=== PATIENT | male | born 1970 | race Caucasian/White ===

== ENCOUNTER → 2017-04-11 | Outpatient (CLI) | payer OTHER ==
[~2017-04-11] MED LIST: ASPI325T45 PO; FURO-85 PO; GLC/500 PO; LISI5TAB3 PO; MULT-506 PO; SIMV40TA2 PO
--- NOTE | 2017-04-12 04:52 | PAP/PSG TECHNICIAN REPORT ---
[facility] Information Security Manager Polysomnogram Report Study name: None Report date: 04/12/2017 Study date: 04/11/2017 Referring Physician: Michael Lanier M.D. Name: ANICETO JENKINS Interpreting Physician: Jazmine Lanier M.D. Date of : 1970 Information Security Manager: Mauri Madsen RPSGT. Sex: Male Age: 47 StudyType: PSG Weight: 327 lbs Height: 47 years, Height 5' 7" BMI: 51.21 Medications: LASIX 20 MG, ASPIRIN 81 MG, PRINIVIL 10 MG, LOPRESSOR 25 MG, GLUCOTROL 5 MG, ONETOUCH ULTRA, COMBIVENT RESPIMAT Patient History PATIENT WAS POSITIVE FOR MEHDI IN 2014 WITH AN AHI OF 17.2/HR. HE WAS WEARING CPAP BUT HAD A GASTRIC SLEEVE DONE AND LOST OVER A HUNDRED POUNDS. HE IS HERE TODAY FOR AN EVALUATION FOR MEHDI. RM 5 Parameters Monitored NPSG: E1-M2, E2-M1, Fp1-M2, Fp2-M1, F3-M2, F4-M2, F4-M1, C3-M2, C4-M2, C4-M1, O1-M2, O2-M2, O2-M1, T3-M2, T4-M1, P3-M2, P4-M1, CHIN1, CHIN2, HR, EKG, Legs, PFLOW, SNOR, FLOW, CFLOW, Tidal Volume, THOR, ABDO, SpO2, PLTH, CPRESS, ETCO2 Wave, ETCO2, pH Sleep Architecture Sleep Stages Time at Lights Off 10:16:10 PM STAGES Time (min.) TST (%) Time at Lights On 4:19:10 AM Wake 22.0 -- Total Recording Time (TRT) 363.00 min. N1 8.0 2 Total Sleep Period (TSP) 351.0 min. N2 155.5 46 Total Sleep Time (TST) 341.0min. N3 80.5 24 Awake Time 22.0 min. REM 97.0 28 Wake after Sleep Onset 16.0 min. Sleep Efficiency (SE) 94 % Sleep Onset Latency (REGAN) 6.0 min. Number of Stage 1 Shifts None Awakenings 11 Stage Changes 52 Number of REM periods 4 REM 97.0 28 REM Latency 51.5 min. NREM 244.0 72 Body Position Analysis Supine Right Left Side Prone Vertical Total Sleep Time (min.) 77.2 0.0 273.8 273.79 0.0 0.0 Total Sleep Time (%) 20% 0% 80% 80 0% N/A% Total Sleep Time REM (min.) 17.5 0.0 79.5 None 0.0 0.0 Total Sleep Time NREM (min.) 49.7 0.0 194.3 None 0.0 0.0 Intermittent Wake (min.) 10.0 0.0 12.0 None 0.0 0.0 Total Sleep Period (%) 20% None None None None None Arousals Myoclonus (PLM) * Events Count Index Events Count Index Spontaneous 23 4 Events Awake (PLMW) 21 57.3 Respiratory 4 0.9 Events Asleep w/ Arousal (PLMA) 6 1.1 PLM 6 1 Events Asleep w/o Arousal (PLMS) 45 7.9 Snoring 2 0 Total Asleep 51 9.0 Total 35 6 Total 72 12 Respiratory Analysis * CA OA MA CH H RERA Total Count 0 0 0 0 8 3 8 Index 0.0 0.0 0.0 0 1.4 1 1.9 Mean Duration 0.0 0.0 0.0 0.00 18.4 13.2 17.0 Longest Duration 0.0 0.0 0.0 0.00 0.0 13.9 26.7 Respiratory Event Summary Total Supine ~Supine Right Left Prone REM NREM Apneas Count 0 0 0 N/A 0 N/A 0 0 Index 0.0 0 0 N/A 0.0 N/A 0 0 Hypopneas (4% Desat) Count 8 7 1 N/A 1 N/A 5 3 Index 1.4 6.2 0 N/A 0.2 N/A 3.1 0.7 Apneas & All Hypopneas Count 8 7 1 N/A 1 N/A 5 3 Index 1.4 6 0 N/A 0 N/A 3.1 0.7 Respiratory Events (Historian Dramatic Arts+All Hyp+RERA) Count 8 9 2 N/A 2 N/A 5 3 Index 1.9 8 0 N/A 0.4 N/A 3.7 1.2 Respiratory Related Arousal Count 4 9 1 N/A 1 N/A 1 4 Index 0.9 4 0 N/A 0 N/A 1 1 Snoring Analysis Supine Right Left Prone REM NREM Total Snore duration 1.4 min Snores count 11 N/A 18 N/A 4 25 29 Snore mean duration 2.9 Sec Snores index 10 N/A 4 N/A 2.5 6.1 5.1 TST with snoring (%) 0.4% Desaturation Event Summary: Minimum %SpO2 Event Count Mean/Min/Max Duration(sec.) Desaturation Index % Time In Bed > 90 5 34.1 / 21.0 / 50.8 1.0 90.3 86 - 90 3 32.2 / 17.8 / 57.5 6.2 8.5 81 - 85 2 19.4 / 17.5 / 21.3 33.4 1.0 76 - 80 0 N/A 0.0 0.1 71 - 75 0 N/A 0.0 0.0 66 - 70 0 N/A 0.0 0.0 61 - 65 0 N/A 0.0 0.0 56 - 60 0 N/A 0.0 0.0 51 - 55 0 N/A 0.0 0.0 < 50 0 N/A 0.0 0.0 Total REM NREM Awake <50% 0.0 min. 0.0 min. 0.0 min. 0.0 min. 51 - 60% 0.0 min. 0.0 min. 0.0 min. 0.0 min. 61 - 70% 0.0 min. 0.0 min. 0.0 min. 0.0 min. 71 - 80% 0.4 min. 0.4 min. 0.0 min. 0.0 min. 81 - 90% 32.7 min. 16.6 min. 15.1 min. 1.0 min. 91 - 100% 310.0 min. 78.2 min. 215.9 min. 15.9 min. Average 92 91 92 93 Minimum SpO2 79 79 84 89 Desaturation Event Index 1.5 3.1 0.7 2.7 # Desat. Events below 89% 6 4 2 N/A Time(%) with Saturation below 89% 4.4 3.7 0.7 0.0 Time(min.) with Saturation below 89% 14.9 12.7 2.3 0.0 Time (mins) REM (mins) NREM (mins) % of TST SpO2 Below 90% 7 4 N3 5.6 SpO2 Below 88% 3 0 0 3 Heart Rate Analysis Min (bpm) Max (bpm) Average (bpm) Awake 34 127 72 NREM 49 127 65 REM 53 127 65 Overall 49 127 65 Supplemental O2 Values Minimum O2 level: None Value Start Time End Time Information Security Manager Comments Mr. Jenkins slept in the left and supine positions. No cardiac arrhythmia noted. Leg movements noted. No bruxism noted. Snoring was noted and scored as a 1 on a scale of 1 through 5. (0=no snoring, 5=snoring loud enough to be heard through a closed door or down the mendez way) Mr. Jenkins awoke to use the restroom 0 times during the night. Mr. Jenkins stated I slept as well as I do when I am in my own bed. The final report will be interpreted and signed by a sleep physician. The completed physician report will then be placed in the patient medical record. Therapy (cm H2O) 0 TIB (min.) 363.0 TST (min.) 341.0 Sleep Onset (min.) 6.0 REM Onset From Sleep (min.) 51.5 Sleep Efficiency % 94 Wakefulness (%) 6 Wakefulness (min.) 22.0 NREM 1 (%) 2 NREM 1 (min.) 8.0 NREM 2 (%) 46 NREM 2 (min.) 155.5 NREM 3 (%) 24 NREM 3 (min.) 80.5 REM (%) 28 REM (min.) 97.0 # Arousals 35 Arousal Index 6 # Snore 29 Snore Index 5.1 AHI 1.4 AHI Supine 6 AHI Non-Supine 0 NREM AHI 0.7 REM AHI 3.1 RDI 1.9 # Obstructive Apnea 0 # Central Apnea 0 # Mixed Apnea 0 # Hypopneas 8 RERAs 3 Total Respiratory Events 11 Time Below SpO2 89% (min.) 14.9 Mean NREM SpO2 (%) 92 Mean REM SpO2 (%) 91 Mean Sleep SpO2 (%) 92 Min NREM SpO2 (%) 84 Min REM SpO2 (%) 79 Position Supine (min.) 77.2 Position Non-supine (min.) 273.8 LM Index Sleep 9.0 LM Index NREM 10.6 LM Index REM 4.9 Mean Heart Rate (bpm) 65 Min Heart Rate (bpm) 49
--- NOTE | 2017-05-06 17:48 | Sleep Study ---
Sleep Study Report Date of Service: 04/12/17 Sleep Study Report Interpreting Physician: Roro Lanier MD Sheet Rocker: HECTOR Duff Mr. Jenkins Is a a 47-year-old male sent to the sleep lab to determine if he continues to have sleep apnea after gastric sleeve surgery and 100 lb of weight loss. [place] Sleepiness Scale score on the evening of this study is not recorded but BMI is 51.21. This patient 's total sleep period time was 351 minutes. Total sleep time was 341 minutes. Sleep efficiency was 94%. Latency to sleep onset was 6 minutes with a wake after sleep onset of 16 minutes. Total non-REM sleep time was 244 minutes. He spent 2% of that time in N1 sleep, 46% in N2 sleep. There was 24% and 3 sleep and 28% REM sleep on this test. REM latency was 51.5 minutes. There were 35 cortical arousals from sleep. 23 of these arousals were spontaneous, 4 were due to respiratory events, 6 due to periodically movements of sleep and two were due to snoring. There were 51 PLMS. PLMS index was 9.0 with an arousal index of 1.1 There were no obstructive, central or mixed apneas noted on this test. There were 8 hypopneas. Apnea-hypopnea index was normal at 1.4. There were 29 snoring events noted on this test. Total sleep time with snoring was 0.4%. Mean saturation during sleep was 92% with desaturations to 79%. Saturations were less than 89% for 14.9 minutes of recorded time. These desaturations occurred while the patient was sleeping on his back during REM sleep. There was no cardiac ectopy noted on this test. Heart rates ranged from a low of 49 beats per minute to a high of 127 beats per minute during sleep. Impression and plan: Mr. Jenkins is a 47-year-old male status post gastric sleeve surgery who has lost 100 lb. He no longer has obstructive sleep apnea. He has mild nocturnal hypoxemia when he sleeps on his back and is in REM Sleep. Positional therapy so that he does not sleep on his back will likely resolve this problem. Clinical correlation is needed. Roro Lanier MD
== END | disposition home or self-care (01) ==
LOC: C.NEUR 20:00
PROVIDERS: ATTEND Family Medicine
DX: G47.33 Obstructive sleep apnea (adult) (pediatric) (principal); G47.34 Idiopathic sleep related nonobstructive alveolar hypoventilation

== ENCOUNTER 2024-01-16 08:49 | Observation (INO) ==
--- NOTE | 2024-01-08 08:57 | Anesthesiology Consultation ---
Date of Service January 08, 2024 Assessment & Plan Chart Review Chart Review: Acceptable Risk for Surgery and Patient NOT seen in Pre Admission Testing Consults Requested none History Surgery Operation Date: 01/16/24 12:25 Proposed Procedures p Right Total Knee Arthroplasty - Martin Brandon DO Height/Weight Height: 5 ft 9 in Weight: 139.706 kg Allergies Allergy/AdvReac Type Severity Reaction Status Date / Time No Known Allergies Allergy Unknown Verified 01/07/24 07:41 Medications Home Medications Medication Instructions Recorded Confirmed Last Taken lancets (Biosynthetic TechnologiesTouch UltraSoft #100 ea 06/29/20 01/02/24 Unknown Lancets) lancets 33 gauge (OneTouch Delica #100 ea 06/29/20 01/02/24 Unknown Lancets) lancing device with lancets kit #1 ea 07/21/20 01/02/24 Unknown (OneTouch Delica Lancing Device kit) multivitamin (Multiple Vitamins 1 tab PO QAM 12/29/20 01/07/24 Unknown tablet) ipratropium 20 mcg-albuterol 100 1 puff inhalation Q6H PRN 10/23/22 01/07/24 Unknown mcg/actuation mist for inhalation Shortness Of Breath #12 grams (Combivent Respimat) mometasone-formoterol HFA 200 2 puff inhalation Q12H PRN 10/23/22 01/07/24 Unknown mcg-5 mcg/actuation aerosol Shortness Of Breath #39 grams inhaler (Dulera) blood sugar diagnostic #100 ea 05/06/23 01/02/24 Unknown blood-glucose meter #1 ea 05/06/23 01/02/24 Unknown atorvastatin 20 mg tablet (Lipitor) 20 mg PO QPM #90 tabs 06/17/23 01/07/24 Unknown lisinopril 20 mg tablet 20 mg PO QPM #90 tabs 06/17/23 01/07/24 Unknown omeprazole 20 mg tablet,delayed 20 mg PO QAM 09/30/23 01/07/24 Unknown release metformin 1,000 mg tablet 1,000 mg PO BID #60 tabs 10/07/23 01/07/24 Unknown gabapentin 800 mg tablet 800 mg PO TID #270 tabs 11/27/23 01/07/24 Unknown furosemide 20 mg tablet 20 mg PO QAM #90 tabs 12/08/23 01/07/24 Unknown ibuprofen 200 mg tablet (Advil) 600 mg PO QAM 01/07/24 01/07/24 Unknown semaglutide 1 mg/dose (4 mg/3 mL) 1 mg subcut Q7D 01/07/24 01/07/24 Unknown subcutaneous pen injector (Ozempic) triamcinolone acetonide 0.1 % 1 applic topical BID PRN flaring 01/07/24 01/07/24 Unknown lotion Past Medical History Medical History Hx of sleep apnea "told no longer needs device" Asthma inh x2 prn>"uses quite often" Morbid obesity with BMI of 45.0-49.9, adult GERD (gastroesophageal reflux disease) Diabetes mellitus NIDDM Lung nodules Monitored by [facility] Osteoarthritis HLD (hyperlipidemia) HTN (hypertension) History of testicular cancer 2018- s/p surgery + chemo Intestinal postoperative nonabsorption hx Hearing deficit B/L hearing aids Past Family History Family History Mother , 07/2009 Diabetes Type 2 Myocardial infarction Heart disease Hypertension Sister Lupus Hypothyroid Hypertension Diabetes H/O gastric bypass Cancer Brother Myocardial infarction, Onset Age: 51 Endocrine disorder Cancer Father Hx of CABG Myocardial infarction, Onset Age: 50 Heart disease Grandfather (Maternal) Heart disease Grandfather (Paternal) Heart disease Denies family history of Ovarian cancer Prostate cancer Breast cancer Colorectal cancer Past Surgical History Surgical History Hx of oral surgery History of lymph node excision near his spine>markers present History of vascular access device removed History of esophagogastroduodenoscopy (EGD) History of orchiectomy, unilateral left History of tooth extraction History of arthroscopy of right knee History of gastric bypass lap sleeve gastrectomy History of cardiac cath 2009, "can't remember why he had it done," ghs, no stents>no cardio. Social History Smoking Status: Former smoker tobacco type: cigarettes Do You Dip or Chew Tobacco: Yes (1 can/day; advised) Smoking End Date: many years ago Hx Alcohol Use: Yes Alcohol type: beer alcohol intake frequency: a few times a month Hx Substance Use: Yes substance use type: former substance user and marijuana Last Used Substance Other:: many years ago-occasional use Testing Laboratory Results Laboratory Tests 08/12/22 01/05/24 01/07/24 07:38 09:09 08:31 WBC 9.26 Hgb 13.8 L Hct 42.8 Plt Count 253 PT 10.3 INR APTT 29 Sodium 141 Potassium 4.3 Chloride 106 Carbon Dioxide 29 BUN 21 Creatinine 1.07 Glucose 157 H Hemoglobin A1c 7.3 H TSH 1.032 01/07/24 08:31 WBC Hgb Hct Plt Count PT INR 0.9 APTT Sodium Potassium Chloride Carbon Dioxide BUN Creatinine Glucose Hemoglobin A1c TSH Electrocardiogram Date: 10/03/23 Normal sinus rhythm Normal ECG When compared with ECG of 28-OCT-2013 11:00, No significant change was found Echocardiogram Date: 09/12/14 EF: 60-64
--- NOTE | 2024-01-15 12:37 | History & Physical Report ---
Date of Service January 15, 2024 Assessment & Plan (1) Right knee DJD: We will proceed with right total knee arthroplasty. Postoperatively he will be started on aspirin for DVT prophylaxis and kept overnight in the hospital for postop medical management. He plans to have the hospital set up home health before discharge. History of Present Illness Chief Complaint: Osteoarthritis of the right knee. 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 He does have a history of a gastric bypass surgery. He used to weigh over 450 pounds. He has brought his weight down considerably. He does have a history of right knee arthroscopy done about 10 years ago. His knee is bothering him off and on since then. It has been bothering him much more over the last 6 months. He has been treated by my partner, Dr. Gross. X-rays and MRI were diagnostic for advanced arthritis of the right knee. After failing extensive conservative treatment, he has elected proceed with a right total knee arthroplasty. Allergies Allergy/AdvReac Type Severity Reaction Status Date / Time No Known Allergies Allergy Unknown Verified 01/07/24 07:41 Home Medications Medication Instructions Recorded Confirmed Type lancets ([employer]Touch UltraSoft #100 ea 06/29/20 01/02/24 Rx Lancets) lancets 33 gauge (OneTouch Delica #100 ea 06/29/20 01/02/24 Rx Lancets) lancing device with lancets kit #1 ea 07/21/20 01/02/24 Rx (OneTouch Delica Lancing Device kit) multivitamin (Multiple Vitamins 1 tab PO QAM 12/29/20 01/07/24 History tablet) ipratropium 20 mcg-albuterol 100 1 puff inhalation Q6H PRN 10/23/22 01/07/24 Rx mcg/actuation mist for inhalation Shortness Of Breath #12 grams (Combivent Respimat) mometasone-formoterol HFA 200 2 puff inhalation Q12H PRN 10/23/22 01/07/24 Rx mcg-5 mcg/actuation aerosol Shortness Of Breath #39 grams inhaler (Dulera) blood sugar diagnostic #100 ea 05/06/23 01/02/24 Rx blood-glucose meter #1 ea 05/06/23 01/02/24 Rx atorvastatin 20 mg tablet (Lipitor) 20 mg PO QPM #90 tabs 06/17/23 01/07/24 Rx lisinopril 20 mg tablet 20 mg PO QPM #90 tabs 06/17/23 01/07/24 Rx omeprazole 20 mg tablet,delayed 20 mg PO QAM 09/30/23 01/07/24 History release metformin 1,000 mg tablet 1,000 mg PO BID #60 tabs 10/07/23 01/07/24 Rx gabapentin 800 mg tablet 800 mg PO TID #270 tabs 11/27/23 01/07/24 Rx furosemide 20 mg tablet 20 mg PO QAM #90 tabs 12/08/23 01/07/24 Rx ibuprofen 200 mg tablet (Advil) 600 mg PO QAM 01/07/24 01/07/24 History semaglutide 1 mg/dose (4 mg/3 mL) 1 mg subcut Q7D 01/07/24 01/07/24 History subcutaneous pen injector (Ozempic) triamcinolone acetonide 0.1 % 1 applic topical BID PRN flaring 01/07/24 01/07/24 History lotion Past Med/Surg History Medical History Hx of sleep apnea "told no longer needs device" Asthma inh x2 prn>"uses quite often" Morbid obesity with BMI of 45.0-49.9, adult GERD (gastroesophageal reflux disease) Diabetes mellitus NIDDM Lung nodules Monitored by [facility] Osteoarthritis HLD (hyperlipidemia) HTN (hypertension) History of testicular cancer 2018- s/p surgery + chemo Intestinal postoperative nonabsorption hx Hearing deficit B/L hearing aids Surgical History Hx of oral surgery History of lymph node excision near his spine>markers present History of vascular access device removed History of esophagogastroduodenoscopy (EGD) History of orchiectomy, unilateral left History of tooth extraction History of arthroscopy of right knee History of gastric bypass lap sleeve gastrectomy History of cardiac cath 2009, "can't remember why he had it done," ghs, no stents>no cardio. Family History Mother , 07/2009 Diabetes Type 2 Myocardial infarction Heart disease Hypertension Sister Lupus Hypothyroid Hypertension Diabetes H/O gastric bypass Cancer Brother Myocardial infarction, Onset Age: 51 Endocrine disorder Cancer Father Hx of CABG Myocardial infarction, Onset Age: 50 Heart disease Grandfather (Maternal) Heart disease Grandfather (Paternal) Heart disease Denies family history of Ovarian cancer Prostate cancer Breast cancer Colorectal cancer Social History Smoking Status: Former smoker Tobacco Type: Smokeless Tobacco (Dip or Chew) Smoking End Date: many years ago; Second Hand Exposure: No; Do You Dip or Chew Tobacco: Yes (1 can/day; advised); Tobacco Cessation Education Requested by Patient: No Hx Alcohol Use: Yes Alcohol type: beer Alcohol Intake Frequency: Monthly or Less Hx Substance Use: Yes Last Used Substance Other:: many years ago-occasional use Preferred Language: Bengali Communication Ability: Effective Excelsior Machine Operator Required: No Beliefs That Will Affect Care: None marital status: Single Current Living Situation: Spouse and Family current occupational status: employed current occupation: taxi cab driver How many Children do You have: 2 Other Information That Helps Us Care for You: No Feels Safe at Home: Yes Safety Concerns: Feels Safe At This Time Dental Care, Regularly: No Seatbelt Use: never Sunscreen Use: No Assistive Devices: Glasses and Hearing Aid - Bilateral Assistive Devices Comment: hearing aids will not be worn DOS; glasses prn Review of Systems All systems reviewed & are unremarkable except as noted in HPI & below. Physical Exam On physical examination of the right knee, he has a slight varus deformity. He has tenderness palpation of the distal medial femoral condyle and over the medial joint line.. Constitutional WD/WN, vitals as above Eyes PERRL, conjunctivae normal, anicteric sclerae ENMT external ear and nose normal, oropharynx normal Neck trachea midline, no thyromegaly Respiratory normal respiratory effort Cardiovascular RRR, no murmur, no edema Gastrointestinal (Abdomen) normal bowel sounds, soft, nontender, no hepatosplenomegaly Psychiatric A+Ox3, euthymic affect Results & Data Results & Data Laboratory Results . Diagnostic Findings X-rays of the right knee do show some advanced arthritis with some joint space narrowing and osteophyte formation MRI of the right knee confirms extensive chondral bone loss and fluid within the femoral condyles.. PG Care Time/CCT Total # of Minutes Spent Total Time Spent with Patient: Total time spent is greater than 50% in coordination of care (as documented) at patient's floor/unit and/or counseling patient: Coding Level of Care Code None Diagnoses Right knee DJD M17.11
[~2024-01-16 08:49] MED LIST changes: -ASPI325T45 PO; +BUPIVACAINE 0.5 % 5 MG/1 ML PF 10ML VIAL ONE; -FURO-85 PO; -GLC/500 PO; -LISI5TAB3 PO; -MULT-506 PO; +ROPIVACAINE 0.5% 5 MG/ML 30 ML VIAL ONE; -SIMV40TA2 PO
[2024-01-16] MEDS: LR 500ML BOLUS, THEN 15ML/HR IV SCH (09:40)
[2024-01-16] MEDS: dexAMETHasone**PF** 10 MG/ML VIAL IV SCH (10:01)
[2024-01-16] MEDS: ACETAMINOPHEN 500 MG TAB PO SCH ×2 (10:01→21:33)
[2024-01-16] MEDS: GABAPENTIN 300 MG CAP PO SCH (10:01)
[2024-01-16] MEDS: FAMOTIDINE 20 MG TAB PO SCH (10:01)
[2024-01-16] MEDS ORDERED: ATROPINE SULFATE 0.1 MG/ML 10ML SYR IV PRN (10:15)
[2024-01-16] MEDS ORDERED: ePHEDrine sulfate 50 MG/ML AMP IV PRN (10:15)
[2024-01-16] MEDS ORDERED: ONDANSETRON INJ 2 MG/ML 2 ML VIAL IV PRN ×2 (10:15→14:25)
--- NOTE | 2024-01-16 10:23 | History & Physical Bridge Note ---
Date of Service January 16, 2024 History & Physical Bridge Note I have examined the patient, reviewed the History & Physical and in the interval since the performance of the History & Physical I have noted the following changes of clinical significance: no changes noted
[2024-01-16] MEDS ORDERED: PROPOFOL IV EMULSION 10 MG/ML 20 ML VIAL IV ONE (10:24)
[2024-01-16] MEDS ORDERED: MIDAZOLAM HCL 1 MG/ML 2ML VIAL ONE (10:25)
[2024-01-16] MEDS ORDERED: fentaNYL citrate PF 100 MCG/2 ML VIAL ONE (10:25)
[2024-01-16] MEDS: TRANEXAMIC ACID 1,000 MG **IV Pre-op IV SCH (10:47)
[2024-01-16] MEDS: ceFAZolin 3000MG 3,000 MG/72.5 ML BAG IV SCH (11:10)
[2024-01-16] MEDS: ROPIV 0.5% 246mg, Ketorolac 30mg, EPINEPHrine 0.5mg in NSS INFIL SCH (12:11)
[2024-01-16] MEDS: ORTHO JOINT ANESTHETIC ONE (12:12)
[2024-01-16] MEDS: TRANEXAMIC ACID 1,000 MG **IV Intra-op IV SCH (12:12)
--- NOTE | 2024-01-16 12:18 | Operative Report ---
PG Post Operative Report Pre & Post Diagnosis Operation Date: 01/16/24 11:00 Pre-Op Diagnosis: Right Knee Degenerative Joint Disease Post-Op Diagnosis: Right Knee Degenerative Joint Disease I identified the patient and participated in the time-out.: Yes Procedure Operation Date: 01/16/24 11:00 Actual Procedures p Right Total Knee Arthroplasty(Right) - Martin Brandon DO Surgeon Martin Brandon DO Poultry Buyer Martin Barrientos PA-C Estimated Blood Loss 30 Findings Consistent with Post-Op Diagnosis Specimens Right femoral tibial bone Description of Procedure Implants used: I used a Noreen Persona total knee arthroplasty system with a size 8 standard PS femur, F tibia, 34 oval patella, and a size 10 CPS polyethylene bearing. All components were cemented in place with Biomet cement. Jaziel arrived [facility] for the above procedure. He was seen in the preoperative holding area and the operative extremity was identified and signed. He was given a preoperative antibiotic, TXA, a spinal anesthetic and an adductor nerve block. He was taken back to the operating room and laid on the table in supine position. He was given basic sedation. The operative knee was then prepped and draped in sterile fashion. A timeout was done, and the patient and the operative extremity was properly identified. A midline incision was made directly over the patella. Dissection was taken down to the extensor mechanism. A medial parapatellar arthrotomy was used. The medial retinaculum was released and the fat pad was mostly excised. The knee was flexed and the ACL, PCL, and meniscus were removed. A drill was sent down the center of the femoral canal followed by an intramedullary britton. Off that britton a distal femoral cutting block was placed. 9 mm was resected off the distal femur at 5 of valgus. A posterior referencing AP sizing guide was then placed on the distal femur. The femur measured to be a size 8. 2 drill holes were placed in 3 of external rotation. A 4-in-1 cutting block was then impacted into place. Anterior, posterior, and chamfer cuts were then made. The proximal tibia was then exposed. An external tibial alignment guide was placed. A tibial cut guide was then anchored in place and the proximal tibia was then resected. The posterior aspect of the knee was then opened up and any additional meniscus fragments and osteophytes were removed. The tibia measured to be a size F. The tibial plate was then placed in the appropriate rotation and the tibia was drilled and punched. Trial components were then placed. I used a size 10 CPS polyethylene insert. The knee was brought through a full range of motion and felt to be stable. The peg holes for the femoral component were then drilled. The patella was then everted and 9 mm was resected off the posterior aspect of the patella. The patella measured to be a size 34 oval. 3 peg holes were then drilled. A trial patella was placed. The knee was once again brought through a full range of motion and felt to be stable. Trial components were then removed. The surrounding soft tissues were injected with 100 cc of an orthopedic pain control cocktail. All components were then cemented into place with Biomet cement. The final polyethylene insert was then snapped into place. Once cement was dry the tourniquet was deflated. Hemostasis was obtained. A dilute betadyne lavage was then done for 3 minutes. The joint was then irrigated with normal saline solution. The medial parapatellar arthrotomy was then closed with #1 Vicryl suture. The skin was closed with 2-0 Vicryl, 3-0V lock suture, and rudy. A soft compressive dressing was placed. He was then transferred to a hospital bed and taken to the postanesthesia care unit in stable condition. He tolerated the procedure well. Martin Barrientos PA-C, was present for the entire procedure. He was critical for patient positioning, prepping, draping, retraction exposure, wound closure and application of sterile dressing. I attest to the content of the Intraoperative Record and any orders documented therein. Any exceptions are noted below.
[2024-01-16] MEDS: fentaNYL citrate PF 100 MCG/2 ML VIAL IV PRN (12:56)
--- NOTE | 2024-01-16 13:22 | XRay Report ---
RIGHT KNEE 2 VIEWS History: Right total knee arthroplasty. Degenerative arthritis. Postop. FINDINGS: The patient is status post a right total knee arthroplasty. The hardware is intact. No frac ture or dislocation. Skin rudy are in place. IMPRESSION: Right total knee arthroplasty. No evidence for hardware complication. ACT 112: Negative or not required by law. Electronically signed by: Manolo Franco M.D. 01/16/2024 1:21 PM
--- NOTE | 2024-01-16 13:30 | Anesthesiology Progress Note ---
Date of Service January 16, 2024 Anesthesia Post Procedure Vital Signs Vital Signs: Temp Pulse Pulse Resp BP Pulse Ox O2 Del Method 01/16/24 13:20 60 12 124/86 96 Room Air 01/16/24 13:10 65 14 130/80 97 Room Air 01/16/24 13:00 74 17 110/83 99 Room Air 01/16/24 12:50 65 12 122/75 97 Room Air 01/16/24 12:41 97.0 F L 68 15 109/65 99 Oxymask 01/16/24 10:07 97.9 F 73 20 146/90 H 99 Room Air O2 Flow Rate 01/16/24 13:20 01/16/24 13:10 01/16/24 13:00 01/16/24 12:50 01/16/24 12:41 6 01/16/24 10:07 Pain Intensity Back: Pain Intensity: 3 Transfer of Care Handoff Completed per policy Notes Mental Status: alert / awake / arousable and participated in evaluation Patient Amnestic to Procedure: Yes Nausea / Vomiting: adequately controlled Pain: adequately controlled Airway Patency, RR, SpO2: stable & adequate BP & HR: stable & adequate Hydration State: stable & adequate Neuraxial Anesthesia: was administered and sensory block is resolving Anesthetic Complications: no major complications apparent and Pt Satisfied with anesthetic care
--- OUTSIDE RECORDS SUMMARY | 2024-01-16 13:50 | External Medical Summary | Summary of Care ---
Author Name Unknown Organization [facility] Address [address] [place] [address] Phone [phone] Care Team Providers Care Ob/Gyn Doctor Name Role Phone Eryn Brown PA-C Primary Care Provider [phone] Reason for Visit * Reason Onset Date Comments Advice 01/06/2024 Encounter Details Date Type Department Care Team (Late st Contact Info) Description 01/06/2024 Telephone [facility] [address] [place] [address] Eryn Brown PA-C [address] [place] [address] Advice Allergies Active Allergy Reactions Criticality Noted Date Comments No Known Drug Allergy 11/19/2010 documented as of this encounter (statuses as of 01/07/2024) Medications Medication Sig Dispensed Refills Start Date End Date Status ONETOUCH ULTRA 2 W/DEVICE KIT use once daily 1 Kit 0 12/27/2014 Active ONETOUCH ULTRASOFT LANCETS MISC use daily dx 250.0 1 Box 11 12/27/2014 Active ONETOUCH DELICA LANCING DEV MISC use daily as directed 1 Each 11 12/27/2014 Active Blood Glucose Monitoring Suppl (ONETOUCH ULTRA SYSTEM) W/DEVICE KIT Use as directed 4 times a day as needed (as directed). E11.9 1 Kit 0 12/06/2015 Active Glucose Blood (ONETOUCH ULTRA BLUE) STRP Use as directed 4 times a day as needed (as directed). E11.9 100 Strip 11 12/06/2015 Active ONETOUCH DELICA LANCETS 33G MISC Use as directed 100 Each 6 12/06/2015 Active COMBIVENT RESPIMAT 20-100 MCG/ACT Inhaler 1 inhalation 4 times a day, max 6 times 1 Inhaler 11 04/15/2017 Active Additional Information Patient taking differently: PRN, 1 inhalation 4 times a day, max 6 times, Reported on 11/10/2019 Mometasone Furo-Formoterol Fum (DULERA) 200-5 MCG/ACT Inhaler Inhale 2 Puffs by mouth 2 times a day. 1 Inhaler 11 07/08/2017 Active Additional Information Patient taking differently:2 Puff InhalationPRN, Reported on 11/12/2022 ONETOUCH ULTRA BLUE STRP USE DIRECTED FOUR TIMES DAILY NEEDED. 100 Strip 1 07/23/2017 Active metFORMIN HCl 500 MG Oral Tablet (Glucophage)Indicat ions:Type 2 diabetes mellitus with hemoglobin A1c goal of less than 7.0% (HCC) TAKE ONE TABLET BY MOUTH TWICE A DAY WITH MORNING AND EVENING MEALS 180 Tab 1 02/14/2021 Active Furosemide 20 MG Oral Tablet (Lasix) TAKE 1 TABLET BY MOUTH TWICE A DAY 180 Tablet 3 11/25/2022 Active Metoprolol Tartrate 25 MG Oral Tablet (Lopressor) TAKE ONE TABLET BY MOUTH TWICE A DAY 180 Tablet 3 05/30/2022 Active Atorvastatin Calcium 20 MG Oral Tablet (Lipitor) Take 1 tablet (20 mg) by mouth daily in the evening 90 Tablet 3 06/17/2023 Active Lisinopril 20 MG Oral Tablet (Prinivil) Take 1 tablet (20 mg) by mouth daily in the evening 90 Tablet 3 06/17/2023 Active Gabapentin 800 MG Oral Tablet (Neurontin) Take 1 tablet orally three times a day 270 Tablet 1 11/27/2023 Active Furosemide 20 MG Oral Tablet (Lasix) take 1 tablet (20 mg) by mouth daily in the morning 90 Tablet 1 12/08/2023 Active Triamcinolone Acetonide 0.1 % External Lotion (Aristocort) 2 times a day as needed. 0 05/02/2023 Active Ozempic (1 MG/DOSE) 4 MG/3ML Subcutaneous Solution Pen-injector (Semaglutide (1 MG/DOSE))Indication s:Type 2 diabetes mellitus with hemoglobin A1c goal of less than 7.0% ([facility]) Inject 1 mg under the skin once a week. 3 mL 1 12/16/2023 01/15/2024 Active documented as of this encounter (statuses as of 01/07/2024) Active Problems Problem Noted Date Diagnosed Date Microalbuminuria 12/16/2023 Drug-induced polyneuropathy 12/16/2023 Body mass index (BMI) of 45.0 to 49.9 in adult 0 04/28/2023 Overview: Per Obesity protocol - Per Obesity protocol - - Concern about urinary tract disease without diag nosis 10/11/2022 History of testicular cancer 11/29/2019 Hypomagnesemia 01/25/2019 Malignant neoplasm of descended left testis 11/20 Cancer Staging:Clinical: Unsigned Intestinal postoperative nonabsorption 7 Status post laparoscopic sleeve gastrectomy 03/2017 HTN, goal below 140/90 04/01/2016 Overview: Per HTN Protocol Nocturnal hypoxemia 08/20/2015 Overview: 03/2017: MEHDI resolved, mild residual hypoxemia Moderate persistent asthma without complication 12/16/2014 Dyslipidemia, goal LDL below 100 03/12/2011 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 0 to 49.9 in adult 11/02/2018 12/28/2020 Overview: Per Obesity protocol #1 - Body mass index (BMI) of 50. 0 to 59.9 in adult 10/28/2017 11/06/2018 Overview: Per Obesity protocol #1 - Per Obesity protocol #1 Body mass index (BMI) of 60. 0 to 69.9 in adult 07/21/2017 10/30/2017 Overview: Per Obesity protocol #1 Morbid obesity with BMI of 45.0-49.9, adult 12/23/2016 07/24/2017 Overview: Per Obesity protocol #1 Obesity 07/08/2016 07/24/2017 Overview: Per Obesity protocol #1 Right shoulder pain 07/08/2016 06/20/20 Acute maxillary sinusitis 10/24/2015 Acute bronchitis, complicated 07/17/2015 03/26/2016 Lower urinary tract infectious disease 04/03/2015 03/26/2016 Overview: ICD-10 update of inactive term Moderate obstructive sleep apnea 03/24/2015 04/15/2017 Kidney pain 02/13/2015 03/26/2016 Diarrhea 01/11/2015 03/26/2016 Cough 09/21/2014 10/17/2014 Bronchitis, complicated 09/12/201404/2016 Acute sinusitis 08/01/2014 09/12/2014 Skin tag 04/28/2014 09/12/2014 Inability to attain erection 04/28/2014 04/03/2015 Bronchitis, complicated 01/31/201405/20 Obesity, morbid (more than 1 00 lbs over ideal weight or BMI > 40) 01/07/2014 03/26/2016 Cellulitis of leg 12/27/2013 06/05/2014 Knee pain, right 11/05/2013 03/26/2016 Preop examination 11/05/2013 03/26/2016 Knee pain, bilateral 06/14/2013 014 Cellulitis of leg 05/18/2013 06/14/2013 Edema 05/18/2013 03/26/2016 Bronchitis 10/15/2012 06/14/2013 Malaise and fatigue 09/11/2012 06/14/20 13 Heel pain 09/11/2012 06/14/2013 Acute sinusitis 09/11/2012 06/14/2013 Acute bronchitis, complicated 12/27/2010 05/23/2011 Dyspnea and respiratory abnormality 12/27/2010 05/25/2011 Overview: ICD-10 update of inactive term Adult body mass index 50.0-59.9 11/19/2010 01/07/2014 HTN, goal below 130/80 11/19/201001/21 Other, multiple, and unspeci fied sites, insect bite, nonvenomous, infected(919.5) 09/04/2010 05/23/2011 Enthesopathy of knee 06/10/2010 012 Enthesopathy of knee 06/05/2010 011 [employer] Other*[id number] 03/14/2010 05/23/2011 Overview: Study Titile: Genomic Markers for Patients with Cardiovascular Disease Project #[id number] PI: Reshma Klein MD Please call [phone] with study related questions Other chest pain 03/14/2010 05/23/2011 CHRONIC CORONARY ARTERY DISEASE 03/14/2010 03/08/2011 Overview: Luminal irregularities Unspecified viral infection, in conditions classified elsewhere and of unspecified site 12/12/2009 05/23/2011 Elevated blood pressure, situational 12/11/2009 05/23/2011 Impaired fasting glucose 12/11/200901/2011 Hearing loss 12/11/2009 06/14/2013 Routine medical exam 11/22/2009 017 Malaise and fatigue 11/22/2009 09/11/20 12 Morbid obesity, BMI not known 11/22/2009 10/15/2012 Dyslipidemia, goal to be determined 03/12/2011 Abnormal glucose tolerance test 05/23/2011 HTN, goal below 140/80 04/04 Overview: Per HTN Protocol HTN, goal below 140/80 01/21 documented as of this encounter (statuses as of 01/07/2024) Immunizations Name Administration Dates Next Due COVID-19 mRNA, LNP-s, No Pre serve, 2-Dose Series (Pfizer) 02/01/2021,01/11/2021 COVID-19, LNP-s, No Preserve , Osman-sucrose, Ages 12+ (Pfizer) 11/14/2021 PPD 09/19/2015 Pneumococcal Polysaccharide PPV23 (Pneumovax) Seasonal Influenza, PF, 6 M & above, IM , (FluLaval or Fluzone) 10/07/2018 Seasonal Influenza, Quadrivalent, No Preserve, I M 07/08/2017,09/07/2016 Seasonal Influenza, Split, IIV3, With Preserve, Inj 08/20/2011 TDAP (age 10 and older)(Boostrix) 10/11/2022 TDAP (age 11 and older)(Adacel) 11/22/2009 documented as of this encounter Social History Tobacco Use Types Packs/Day Years Used Date Smoking Tobacco: Former Cigarettes 2 15 0 10/20/1980 - 10/20/1995 Smokeless Tobacco: Current Snuff Alcohol Use Standard Drinks/Week Comments No 0 (1 standard drink = 0.6 oz pur e alcohol) rare social PHQ-2 Answer Date Recorded PHQ-2 Score 0 10/07/2018 Hunger Vital Sign Answer Date Recorded Within the past 12 months, y ou worried that your food would run out before you got the money to buy more. Never true 12/15/19 24 Within the past 12 months, t he food you bought just didn't last and you didn't have money to get more. Never true 12/15/2023 Sex and Gender Information Value Date Recorded Sex Assigned at Male 12/27/2019 12:56 PM EDT Gender Identity Male 12/27/2019 12:56 PM EDT Sexual Orientation Straight 12/27/2019 12 :56 PM EDT Job Start Date Occupation Industry Not on file Not on file Not on file documented as of this encounter Functional Status Functional Status Response Date of Assess ment Are you deaf or do you have serious difficulty h earing? No 02/02/2016 Are you blind or do you have serious difficulty seeing, even when wearing glasses? No 02/02/2016 Do you have serious difficul ty walking or climbing stairs? (5 years old or older) No 02/02/2016 Do you have difficulty dress ing or bathing? (5 years old or older) No 02/02/2016 Because of a physical, menta l, or emotional condition, do you have difficulty doing errands alone such as visiting a doctor s office or shopping? (15 years old or older) No 02/02/20 16 Cognitive Status Response Date of Assessm ent Because of a physical, menta l, or emotional condition, do you have serious difficulty concentrating, remembering, or making decisions? (5 years old or older) No 02/02/2016 documented as of this encounter Miscellaneous Notes * Telephone Encounter - Rakel Hatfield LPN - 01/07/2024 4:35 PM EDT Pt read Weele message today regarding this. Nothing further needed. See other message. * Telephone Encounter - Tobias Barker OSA - 01/06/2024 12:04 PM EDT Pt has called to get in contact with Jaelyn Boyd,mentioned he will like to inform her his results for A1C . Ty documented in this encounter Plan of Treatment Upcoming Encounters Date Type Department Care Team (Late st Contact Info) Description 02/03/2024 8:20 AM EDT [facility] [address] [phone] Yamilka Yang [address] [phone] 02/10/2024 3:00 PM EDT Office Visit Family Practice [facility] [address] [address] Colette Boyd CRNP [address] [address] Health Maintenance Due Date Last Done Comments Hepatitis C Screening 01/03/1986 Hepatitis B (1 of 3 - 19+ 3-dose series) 01/03/1987 Pneumococcal Vaccine: Pediatrics (0 to 5 Years) and At-Risk Patients (6 to 64 Years) (2 of 2 - PCV) 03/08/2012 03/08/2011 Cologuard 01/03/2013 Colonoscopy 01/03/2013 Colorectal Cancer Screening 01/03/2013 Fecal Occult Blood Test 01/03/2013 Sigmoidoscopy 01/03/2013 Zoster Vaccines (1 of 2) 01/03/2018 Depression Screening 05/24/2020 05/24/2019 GFR 02/07/2021 02/08/2020, 09/20, 05/15/2019, Additional history exists COVID-19 Vaccine ( season) 2023 07/12/2022, 11/14/2021, 02/01/2021, Additional history exists Influenza Vaccine (FLU shot) (#1) 2023 07/12/2022, 07/06/2021, 10/07/2018, Additional history exists Diabetic Foot Exam 10/11/2023 10/11/2022, 0 12/22/2019, 11/10/2018, Additional history exists Diabetic Eye Exam 01/14/2024 01/13/2023, , 02/23/2021, Additional history exists HbA1c 05/11/2024 11/11/2023, 09/20, 10/16/2018, Additional history exists Lipid Panel 10/15/2024 10/15/2019, 09/20, 01/11/2017, Additional history exists Albumin/Creatinine Ratio 11/10/2024 024, 01/11/2017, 03/30/2016, Additional history exists DTaP,Tdap,and Td Vaccines (3 - Td or Tdap) 10/11/2032 10/11/2022, 11/22/2009 GARDASIL-HPV IMMUNIZATION SERIES Aged Out No longer eligible based on patient's age to complete this topic MENINGOCOCCAL (MENACTRA/MENVEO) Aged Out No longer eligible based on patient's age to complete this topic documented as of this encounter Medical Devices Not on filedocumented as of this encounter Advance Directives Latest Code Status on File Code Status Date Activated Date Inactivated Comments Full Code 02/02/2016 10:22 AM 02/03/2016 5:31 PM Question Answer Comments Discussion of Advance Direct monique occurred with: Not Discussed Does the patient have a Living Will? No Does the patient have Health Care Power of Fourth Officer? No Code Status History Code Status Date Activated Date Inactivated Comments Full Code 02/02/2016 6:28 AM 02/02/2016 10:22 AM This order reflects the patients wishes and were consensually agreed upon. Care Teams Ob/Gyn Doctor Relationship Specialty Start Date End Date Eryn Brown PA-C [address] [facility] [place] [address] PCP - General Physician Paint Trimmer Pipe Bowls 11/11/23 documented as of this encounter
--- OUTSIDE RECORDS SUMMARY | 2024-01-16 13:50 | External Medical Summary | Summary of Care ---
Author Name Unknown Organization [facility] Address [address] [place] [address] Phone [phone] Care Team Providers Care Medical Field Representative Name Role Phone Eryn Brown PA-C Primary Care Provider [phone] Reason for Visit * Reason Onset Date Comments Health Maintenance 01/13/2024 Encounter Details Date Type Department Care Team (Late st Contact Info) Description 01/13/2024 Telephone [facility] [address] [place] [address] Eryn Brown PA-C [address] [place] [address] Health Maintenance Allergies Active Allergy Reactions Criticality Noted Date Comments No Known Drug Allergy 11/19/2010 documented as of this encounter (statuses as of 01/13/2024) Medications Medication Sig Dispensed Refills Start Date [...] hemoglobin A1c goal of less than 7.0% ([facility]) Inject 1 mg under the skin once a week. 3 mL 1 12/16/2023 01/15/2024 Active documented as of this encounter (statuses as of 01/13/2024) Active Problems Problem Noted Date Diagnosed Date [...] as of this encounter (statuses as of 01/13/2024) Resolved Problems Problem Noted Date Diagnosed Date [...] of knee 06/05/2010 011 [employer] Other*[id number] 03/14/2010 05/23/2011 Overview: Study Titile: Genomic Markers for Patients with Cardiovascular Disease Project #[id number] PI: Reshma Klein MD Please call [phone] with study related questions Other chest pain [...] as of this encounter (statuses as of 01/13/2024) Immunizations Name Administration Dates Next Due COVID-19 [...] encounter Miscellaneous Notes * Telephone Encounter - Maria Krishnan LPN - 01/13/2024 1:44 PM EDT Care Gaps Comprehensive Care Outreach Last Office/Telemedicine Visit: 11/10/2023 (in office), Visit date not found (telemedicine) Next Office Visit: Visit date not found Hemoglobin AIC Results: Lab Results Component Value Date/Time HEMOGLOBIN A1C - [facility] 10.4 (H) 11/11/2023 08:54 AM HEMOGLOBIN A1C - [facility] 7.0 (H) 10/15/2019 09:19 AM HEMOGLOBIN A1C - [facility] 6.1 (H) 10/16/2018 10:11 AM HEMOGLOBIN A1C - [facility] 5.6 01/11/2017 08:32 AM BP Readings from Last 1 Encounters: 12/16/23 140/82 Reviewed Health Maintenance below: Health Maintenance Topic Date Due Hepatitis C Screening Never done Hepatitis B (1 of 3 - 19+ 3-dose series) Never done Pneumococcal Vaccine: Pediatrics (0 to 5 Years) and At-Risk Patients (6 to 64 Years) (2 of 2 - PCV)03/08/2012 Colorectal Cancer Screening Never done Zoster Vaccines (1 of 2) Never done Depression Screening 05/24/2020 GFR 02/07/2021 Influenza Vaccine (FLU shot) (1) 06/20/2023 COVID-19 Vaccine ( - 2022- season) 2023 Diabetic Foot Exam 10/11/2023 Diabetic Eye Exam 01/14/2024 HbA1c 05/11/2024 Pcp is at [facility] Care Gap Outreach Action Taken: Outreach not indicated documented in this encounter Plan of Treatment Upcoming Encounters Date Type Department Care Team (Late st Contact Info) Description 02/03/2024 8:20 AM EDT Laboratory Laboratory, [facility] [address] [phone] Yamilka Yang [facility] [address] [place] [id number] 02/10/2024 3:00 PM EDT Office Visit Family Practice [facility] [address] [address] Colette Boyd CRNP [address] [place] [address] Health Maintenance Due Date Last Done Comments [...] 09/20, 05/15/2019, Additional history exists COVID-19 Vaccine (2022- season) 2023 07/12/2022, 11/14/2021, 02/01/2021, Additional history [...] the patient have Health Care Power of Guardian Family Member? No Code Status History Code Status Date Activated Date Inactivated Comments Full Code 02/02/2016 6:28 AM 02/02/2016 10:22 AM This order reflects the patients wishes and were consensually agreed upon. Care Teams Medical Field Representative Relationship Specialty Start Date End Date Eryn Brown PA-C [address] [facility] [place] [address] PCP - General Physician Sewer System Supervisor 11/11/23 documented as of this encounter
[2024-01-16] MEDS ORDERED: TRIAMCINOLONE ACET 0.1% CR 15 GM TUBE TOP PRN (14:25)
[2024-01-16] MEDS ORDERED: IPRATROPIUM BROMIDE/ALBUTEROL respimat INH INH PRN (14:25)
[2024-01-16] MEDS ORDERED: MAGNESIUM HYDROXIDE SUSP 30 ML UDC PO PRN (14:25)
[2024-01-16] MEDS ORDERED: HYDROmorphone INJ 0.5 MG/0.5 ML SYR IV PRN (14:25)
[2024-01-16] MEDS ORDERED: bisacodyL 10 MG SUPP PR PRN (14:25)
[2024-01-16] MEDS ORDERED: oxyCODONE HCL IR 5 MG TAB (IMMEDIATE RELEASE) PO PRN (14:25)
[2024-01-16] MEDS ORDERED: METOCLOPRAMIDE HCL INJ 5 MG/ML 2 ML VIAL IV PRN (14:25)
[2024-01-16] MEDS ORDERED: NALOXONE HCL 0.4 MG/1 ML VIAL/CARP IV PRN (14:25)
[2024-01-16] MEDS ORDERED: PHARMACY GLYCEMIC MGMT CONSULT PRN (14:25)
[2024-01-16] MEDS: LR 60ML/HR IV SCH (14:27)
[2024-01-16] MEDS ORDERED: FLUTICASONE/VILANTEROL 200/25MCG 14 PUFFS/INHALER INH PRN (14:42)
[2024-01-16] MEDS ORDERED: ALBUTEROL HFA 8 GM INHALER INH PRN (14:43)
[2024-01-16] MEDS ORDERED: IPRATROPIUM BROMIDE HFA INHALER INH PRN (14:43)
[2024-01-16] MEDS: SODIUM CHLORIDE 0.9% 1,000 ML IV SCH (14:48)
--- NOTE | 2024-01-16 14:55 | Pharmacy Report ---
Pharmacy Glycemic Short Note 2 - Date of Service January 16, 2024 - Glycemic Short BSG Results (Last 24 hours): 01/16/24 01/16/24 01/16/24 09:39 12:41 14:47 POC Glucose 117 H 150 H 159 H OUTPATIENT ANTIDIABETIC REGIMEN: * metformin 1000mg PO BID * Ozempic 1mg SC Q7D * HbA1c 7.3% (01/05/24) ASSESSMENT: * Jaziel is a 54 YOM admitted status post right total knee arthroplasty and a history of T2DM. Pharmacy has been consulted for glycemic management while inpatient. * Preoperative BSG within goal range, trended up with dexamethasone given preop, will add a one time dose of basal insulin to help cover and add overnight checks. * Novolog initiated at a weight based stress 2 (based on AdjBW) PLAN FOR INPATIENT GLYCEMIC CONTROL: * Hold outpatient oral diabetes medications * Basal insulin * Lantus 15 units SC x1 * Bolus insulin * NovoLog per scale ACHS or Q6hrs while NPO * Goal Range: Low 110 mg/dL - High 140 mg/dL * Correction Factor: 25 mg/dL/unit * Nutritional / Prandial insulin per carb ratio of 1 unit per 8 grams CHO consumed
[2024-01-16] MEDS: GABAPENTIN 800 MG TAB PO SCH (15:01)
[2024-01-16] MEDS: LANTUS PER UNIT CHARGE SC ONE (15:02)
[2024-01-16] MEDS: KETOROLAC 30 MG/ML VIAL IV SCH (15:16)
[2024-01-16] MEDS: INSULIN ASPART PER UNIT CHARGE SC SCH (17:09)
[2024-01-16] MEDS: ceFAZolin 2000MG 2,000 MG/15 ML SYR IV SCH (18:22)
[2024-01-16] MEDS: ATORVASTATIN 20 MG TAB PO SCH (20:43)
[2024-01-16] MEDS: DOCUSATE SODIUM 100 MG CAP PO SCH (20:44)
[2024-01-16] MEDS: lisinopril 20 MG TAB PO SCH (20:44)
[2024-01-16] MEDS: SENNA 8.6 MG TAB PO SCH (20:44)
[2024-01-16] MEDS: ASPIRIN 81 MG ECTAB PO SCH (20:45)
[2024-01-16] MEDS ORDERED: Nursing to Pharmacy Communication SCH (22:00)
[2024-01-17] MEDS: INSULIN ASPART PER UNIT CHARGE SC SCH (00:03)
--- NOTE | 2024-01-17 07:38 | Orthopedic Progress Note ---
Date of Service January 17, 2024 Assessment & Plan (1) Status post right knee replacement: Overall he is doing very well. He is not having much pain in the right knee. He will be seen by physical therapy today for ambulation and range of motion exercises. The nursing staff can change his dressing after physical therapy. He is on aspirin for DVT prophylaxis. He can be discharged home later today. He will follow-up with orthopedics in 2 weeks. Subjective Jaziel was seen and examined at bedside this morning. Overall is doing very well. He is not having much pain in the right knee. He has been up and ambulating around the nursing station. He has no complaints.. Review of Systems All systems reviewed & are unremarkable except as noted in HPI & below. Physical Exam On physical examination of the right knee, the dressing is clean and dry. His leg is out full extension. He has active dorsiflexion plantarflexion of his right ankle.. Results & Data Results & Data Laboratory Results . Diagnostic Findings Postoperative x-rays of the right knee show the prosthesis to be in anatomic alignment without any evidence of fracture, desiccation, or loosening.. PG Care Time/CCT Total # of Minutes Spent Total Time Spent with Patient: Total time spent is greater than 50% in coordination of care (as documented) at patient's floor/unit and/or counseling patient: Coding Level of Care Code 43200 Post Operative Follow-Up Diagnoses Status post right knee replacement Z96.651
--- NOTE | 2024-01-17 07:39 | Discharge Summary ---
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 He does have a history of a gastric bypass surgery. He used to weigh over 450 pounds. He has brought his weight down considerably. He does have a history of right knee arthroscopy done about 10 years ago. His knee is bothering him off and on since then. It has been bothering him much more over the last 6 months. He has been treated by my partner, Dr. Gross. X-rays and MRI were diagnostic for advanced arthritis of the right knee. After failing extensive conservative treatment, he has elected proceed with a right total knee arthroplasty. Admission Exam (Per Admitting) On physical examination of the right knee, he has a slight varus deformity. He has tenderness palpation of the distal medial femoral condyle and over the medial joint line.. Principal Diagnosis Same as "Discharge Diagnosis" noted below under Discharge Instructions. Discharge Exam On physical examination of the right knee, the dressing is clean and dry. His leg is out full extension. He has active dorsiflexion plantarflexion of his right ankle.. Discharge Data Procedures Performed Operation Date: 01/16/24 11:00 Actual Procedures p Right Total Knee Arthroplasty(Right) - Martin Brandon DO Ordered Studies 01/16/24 05:00 US - OR guided needle placemen Routine Hospital Course (1) Status post right knee replacement: On January 16, [address] [facility] and underwent a right knee replacement without complication. He had a spinal anesthetic. Postoperatively he was started on aspirin for DVT prophylaxis and transferred to the general orthopedic floors. His hospital course was uneventful. On postop day #1, his vital signs were stable and his pain was well-controlled. He was able to participate well with physical therapy doing ambulation and range of motion exercises. He was then discharged home. He will follow-up with orthopedics in 2 weeks. PG Care Time/CCT Total # of Minutes Spent Total Time Spent with Patient: Total time spent is greater than 50% in coordination of care (as documented) at patient's floor/unit and/or counseling patient: Discharge Plan Discharge Items Patient Disposition: Home - Self-Care Reason For Visit: Right Knee Degenerative Joint Disease Discharge Diagnosis: Right knee replacement Activity: As commented below Non-emergency contact: Surgeon Call non-emergency contact if: your wound has increased redness and your wound has increased drainage Follow-up/Referrals: Marielos Keyes MD [Primary Care Provider] - Diet: Regular Addtl Attending Provider Instructions: Activity and Therapy Recommendations: * If you are using [facility] then therapy will be provided at your home until they feel you have accomplished all of your goals. * If you are using [facility] then Physical Therapy will be provided until they feel you are ready to start Outpatient Physical Therapy. * If you are not using home therapy then Outpatient Physical Therapy should start about 3-5 days from your day of surgery. Therapy will last about 6-10 weeks * It is important not to put a pillow under your knee when you are relaxing or sleeping. It is just as important to make sure you are getting your knee perfectly straight as it is to regain your knee bend. * You were shown a series of exercises in the hospital. Do these exercises three times each day including the exercises you were shown in physical therapy. * Get up and walk several times each day. For the first four weeks, try not to stand or walk for more than one hour at a time. If you do stand or walk for more than one hour, you will not hurt anything, but your leg will likely swell. * As you feel comfortable, you may change from the walker or crutches to a cane and then to independent walking. Medications: * Narcotic You will likely be sent home from the hospital with a prescription for the narcotic pain medication that worked best throughout your stay. * Cefadroxil -take the antibiotic twice a day for 10 days to help prevent infection. * Aspirin Most patients will be required to take Aspirin 81mg twice a day for 6 weeks after surgery. This is obtained [id number] and a prescription is not necessary. * Other medications may be prescribed for specific circumstances. If you have any questions, please call the office at . * Resume previous home medications unless otherwise instructed TEDs/Elastic Stockings: The white elastic stockings help limit swelling and prevent blood clots from forming in your legs.~ The more you wear them, the more they work. Wear them for six weeks. Dressing Care: The dressing can be changed after physical therapy on postop day #1. Daily dry dressing changes for a few days, especially if the incision is still draining some. If the incision is not draining then you may leave the rudy open to air. If there is a little bit of drainage or if the rudy are getting stuck on your clothing then cover the incision with a dry dressing. The rudy will be removed at your 2 week follow-up appointment. Showering: You may shower 5 days from the day of surgery as long as the incision is no longer draining. You may shower with the rudy exposed. Let soapy water run over the rudy and pat them dry. Do not scrub or soak the incision. Things To Watch For: * Drainage from the incision site that occurs more than one week after your surgery. * Increased redness at the incision site. * Fever above 102 degrees Fahrenheit. * Unusual chest pain or shortness of breath. * Call [facility] at with any of the above problems Follow-Up Visit: Follow-up with Dr. Brandon's PA (Martin Barrientos) 2-3 weeks after your day of surgery . He will remove your rudy and answer any questions. If you have any additional questions or concerns, Dr Brandon is usually in the office at the same time and will be available An appointment was probably scheduled when you signed-up for surgery in the office. If you have any questions call Office Instructions: More detailed instructions as well as Frequently Asked Questions were provided in a folder by our office when you signed-up for surgery. Please review these instructions when you get home. If you have any further questions or concerns, please feel free to call the office at [phone] Pending Studies at Discharge: No Stand-Alone Forms: My [facility] Medications and DC Order Prescriptions: New oxycodone 5 mg Tablet 5 mg PO Q4H PRN (Reason: pain) Qty: 30 0RF cefadroxil 500 mg capsule 500 mg PO BID 10 Days Qty: 20 0RF aspirin 81 mg Tablet,Delayed Release (Dr/Ec) 81 mg PO BID 42 Days Qty: 0 0RF Continued (DME) lancets [OneTouch Delica Lancets] 33 gauge misc See Rx Instructions .ROUTE .MEDSUPPLY Qty: 100 0RF Rx Instructions: As directed (DME) lancets [OneTouch UltraSoft Lancets[place] [facility] [place] Instructions .ROUTE .MEDSUPPLY Qty: 100 0RF Rx Instructions: As directed (DME) lancing device with lancets [OneTouch Delica Lanc Device] Kit See Rx Instructions .ROUTE .MEDSUPPLY Qty: 1 0RF Rx Instructions: As directed (DME) blood sugar diagnostic Strip See Rx Instructions .ROUTE .MEDSUPPLY Qty: 100 1RF Rx Instructions: As directed (DME) blood-glucose meter Kit See Rx Instructions .ROUTE .MEDSUPPLY Qty: 1 0RF Rx Instructions: As directed lisinopril 20 mg tablet 20 mg PO QPM Qty: 90 3RF atorvastatin [Lipitor] 20 mg tablet 20 mg PO QPM Qty: 90 3RF metformin 1,000 mg tablet 1,000 mg PO BID Qty: 60 6RF gabapentin 800 mg tablet 800 mg PO TID Qty: 270 1RF furosemide 20 mg tablet 20 mg PO QAM Qty: 90 1RF multivitamin [Multiple Vitamins] Tablet 1 tab PO QAM Combivent Respimat 20-100 mcg/actuation mist 1 puff INHALATION Q6H PRN (Reason: Shortness Of Breath) Qty: 12 1RF Dulera 200-5 mcg/actuation HFA aerosol inhaler 2 puff INHALATION Q12H PRN (Reason: Shortness Of Breath) Qty: 39 1RF omeprazole 20 mg tablet,delayed release (DR/EC) 20 mg PO QAM Ozempic 1 mg/dose (4 mg/3 mL) Pen Injector 1 mg SUBCUT Q7D Patient Comments: fridays triamcinolone acetonide 0.1 % lotion 1 applic topical BID PRN (Reason: flaring) Rx Instructions: Apply to areas of the chest twice daily for up to 10 days as needed for f laring. ibuprofen [Advil] 200 mg Tablet 600 mg PO QAM Discharge Orders: Discharge Order (Routine); Ordered 01/17/24 Ordered By: Martin Brandon Admission Data Admit Date/Time: 01/16/24 12:42 Attending Provider: Martin Brandon Admit Provider: Martin Brandon Primary Care Provider: Marielos Keyes
[2024-01-17] MEDS: MULTIVITAMIN TAB PO SCH (08:23)
[2024-01-17] MEDS: FUROSEMIDE 20 MG TAB PO SCH (08:23)
[2024-01-17] MEDS: LANTUS PER UNIT CHARGE SC SCH (08:30)
== END 2024-01-17 11:20 | disposition home or self-care (01) ==
LOC: 3E 08:49 → ASU 08:49